=== PATIENT | male | born 1995 | race Two or more races ===

== ENCOUNTER 2018-09-17 12:19 | Emergency (ER) | payer MEDICAID ==
[~2018-09-17] VITALS: Ht 177.8 cm; Wt 81.6 kg
[2018-09-17] MEDS ORDERED: IBUPROFEN 800 MG TAB PO ONE (12:30)
[2018-09-17 12:45] VITALS: BP 140/82
[2018-09-17] MEDS ORDERED: HYDROcodone-ACET 5/325MG TAB PO ONE (14:15)
== END 2018-09-17 14:56 | disposition home or self-care (01) ==
LOC: EDBD 12:19 → ER 12:36
DX: S62.101A Fracture of unspecified carpal bone, right wrist, initial encounter for closed fracture (principal); S63.114A Dislocation of metacarpophalangeal joint of right thumb, initial encounter; S76.012A Strain of muscle, fascia and tendon of left hip, initial encounter; R51 Headache; V43.52XA Car driver injured in collision with other type car in traffic accident, initial encounter; Y93.89 Activity, other specified; Y99.8 Other external cause status; Y92.410 Unspecified street and highway as the place of occurrence of the external cause
CPT/HCPCS: 26700; 70450; 73130; 73140; 73502